=== PATIENT | female | born 1980 | race Hispanic/Latino ===

== ENCOUNTER 2017-05-02 02:26 | Emergency (ER) | payer SELFPAY ==
[~2017-05-02] VITALS: Ht 152.4 cm; Wt 95.5 kg
[2017-05-02] MEDS ORDERED: PRENATAL VITAM1 EACH (03:24)
[2017-05-02] MEDS ORDERED: CEFTRIAXONE SOD 1 GM VIAL IV SCH (04:30)
== END 2017-05-02 05:30 | disposition home or self-care (01) ==
LOC: FSED 02:26
DX: O20.9 Hemorrhage in early pregnancy, unspecified (principal); O03.88 Urinary tract infection following complete or unspecified spontaneous abortion
CPT/HCPCS: 36415; 76801; 81025; 84702; 86900; 99283